=== PATIENT | female | born 1975 | race Hispanic/Latino ===

== ENCOUNTER 2022-01-17 06:52 | Emergency (ER) | payer SELFPAY ==
[~2022-01-17] VITALS: Ht 157.5 cm; Wt 68.0 kg
[2022-01-17] MEDS ORDERED: OXYMETAZOLINE HCL 0.05% NAS 1 SPRAY BTL ONE ×2 (07:45→07:50)
== END 2022-01-17 08:21 | disposition home or self-care (01) ==
LOC: FSED 06:56
DX: R04.0 Epistaxis (principal); I10 Essential (primary) hypertension; E11.9 Type 2 diabetes mellitus without complications; E78.5 Hyperlipidemia, unspecified
CPT/HCPCS: 99282